=== PATIENT | female | born 1980 | race Caucasian/White ===

== ENCOUNTER 2021-02-09 22:24 | Inpatient (IN) | payer SELFPAY ==
[~2021-02-09] VITALS: Ht 152.4 cm; Wt 52.3 kg
[2021-02-09 22:58] LABS: HEMOGLOBIN 11.2 g/dl (12.5-16.0); MEAN CELL VOLUME 69 fl (80.0-100.0); MEAN CORPUSCULAR HEMOGLOBIN 20 pg (27.0-31.0); MEAN CORPUSCULAR HGB CONC 29 g/dl (33.0-37.0); MEAN PLATELET VOLUME 9.7 fl (7.4-10.4); PLATELET COUNT 868 K/mm3 (130-400); RED BLOOD COUNT 5.63 M/mm3 (4.10-5.30); REDCELL DISTRIBUTION WIDTH-CV 18.4 % (11.5-14.5)
[2021-02-09 23:14] LABS: ALANINE AMINOTRANSFERASE 12 U/L (4-34); ALBUMIN 4.9 gm/dL (3.5-5.0); ALKALINE PHOSPHATASE 115 U/L (50-136); ANION GAP 18 mmol/L (7-16); AST,SGOT 27 U/L (15-37); BILIRUBIN,TOTAL 0.4 mg/dL (0.0-1.0); BLOOD UREA NITROGEN 44 mg/dL (7-17); C-REACTIVE PROTEIN 2.9 mg/dL (0.0-0.9); CALCIUM 8.2 mg/dL (8.4-10.2); CHLORIDE 101 mmol/L (98-107); CREATININE, serum 3.41 (0.52-1.25); GLUCOSE 118 mg/dL (74-106); LIPASE 99 U/L (23-300); MAGNESIUM 2.2 mg/dL (1.6-2.3); SODIUM 131 mmol/L (137-145); TOTAL PROTEIN 9.1 gm/dL (6.4-8.2)
[2021-02-09 23:19] LABS: CARBON DIOXIDE 12 mmol/L (22-30)
[2021-02-09 23:21] LABS: POTASSIUM 1.8 mmol/L (3.4-5.0)
[2021-02-09 23:32] LABS: TROPONIN-I < 0.012 ng/mL (0.000-0.035)
[2021-02-09 23:39] LABS: ACETAMINOPHEN < 10 ug/mL (10-30); SALICYLATE < 1.0 mg/dL
[2021-02-10] VITALS (213 sets, daily range): BP systolic 90–101; BP diastolic 51–66; PULSE 66–83; TEMP 97.5–98.9; O2SAT 83–100
[2021-02-10 00:01] LABS: ANISOCYTOSIS 2+; BAND 8 % (0-10); LYMPHOCYTE 20 % (20.0-51.0); MICROCYTOSIS 1+; NEUTROPHILS 66 % (42.0-75.2); POIKILOCYTOSIS 2+
[2021-02-10 00:02] LABS: OVALOCYTES 1+; PLATELET ESTIMATE INCREASED (NORMAL)
[2021-02-10] MEDS ORDERED: PAXIL 10MG10 MG PO (03:04)
[2021-02-10] MEDS ORDERED: BUSPAR5 MG PO (03:04)
[2021-02-10 03:42] LABS: COLLECTION METHOD CLEAN CATCH
--- NOTE | 2021-02-10 03:50 | NUR ---
Patient arrived to ICU at 0223 with children at bedside. Patient alert and orientated. Assessment complete and charted. Natalie MENA in room at 0230 to assess patient. [facility] arrived at 0257 to take patient children to temp placement. Left with children at 0313. Verbal order for durham received. Durham placed. Patient has had 2 episodes of diarrhea since arrival with reports of ABD pain. Patient orienated to ICU. All questions answered. Labs repeated. Denies needs.
[2021-02-10 03:53] LABS: MUCOUS Present /lpf; PH 5 (5-8); SQUAMOUS EPITHELIAL 20-50 /hpf; URINE APPEARANCE Turbid; URINE BACTERIA Many /hpf; URINE BILIRUBIN Negative (NEGATIVE); URINE BLOOD Negative (NEGATIVE); URINE COLOR Yellow; URINE GLUCOSE Negative (NEGATIVE); URINE KETONE Negative (NEGATIVE); URINE LEUKOCYTE ESTERASE Negative (NEGATIVE); URINE NITRATE Negative (NEGATIVE); URINE PROTEIN(semi-quant) 2+ (NEGATIVE); URINE UROBILINOGEN Negative (NEGATIVE)
[2021-02-10 04:00] LABS: CALCIUM 6.6 mg/dL (8.4-10.2); CREATININE, serum 2.28 (0.52-1.25); MAGNESIUM 1.9 mg/dL (1.6-2.3)
[2021-02-10 04:05] LABS: POTASSIUM 2.3 mmol/L (3.4-5.0)
[2021-02-10 06:11] LABS: BASO # 0.1 (0.0-0.2); BASO % 0.7 % (0.0-2.0); EOS # 0.1 (0.0-0.7); EOS % 1.2 % (0-4.0); GRAN # 4.5 (1.4-6.5); GRAN % 65.5 % (42.2-75.2); LYMPH # 1.3 (1.2-3.4); MEAN CELL VOLUME 69 fl (80.0-100.0); MEAN CORPUSCULAR HGB CONC 29 g/dl (33.0-37.0); MEAN PLATELET VOLUME 9.3 fl (7.4-10.4); MONO # 0.9 (0.1-0.6); MONO % 12.4 % (1.7-9.3); RED BLOOD COUNT 4.15 M/mm3 (4.10-5.30); REDCELL DISTRIBUTION WIDTH-CV 17.5 % (11.5-14.5)
[2021-02-10 06:15] LABS: HEMATOCRIT 28.6 % (37.0-47.0); HEMOGLOBIN 8.3 g/dl (12.5-16.0); MEAN CORPUSCULAR HEMOGLOBIN 20 pg (27.0-31.0); PLATELET COUNT 589 K/mm3 (130-400)
[2021-02-10 06:26] LABS: CALCIUM 7.1 mg/dL (8.4-10.2); CREATININE, serum 1.58 (0.52-1.25)
[2021-02-10 06:31] LABS: POTASSIUM 2.9 mmol/L (3.4-5.0)
--- NOTE | 2021-02-10 06:34 | NUR ---
Patient asleep in bed this AM. Potassium replacement infusing. x2 episodes of diarrhea during night. Call light in reach.
--- NOTE | 2021-02-10 07:24 | NUR ---
Report given to SALVADOR Moody
--- NOTE | 2021-02-10 16:43 | NUR ---
Patient has done well since arriving from the ICU. She remains on fluids and K+ protocol. Patient is independent and A&Ox4. Patient has no complaints at this time.
--- NOTE | 2021-02-10 21:32 | NUR ---
PT RESTING COMFORTABLY IN BED. EVENING MEDICATIONS GIVEN. PT HAS NS RUNNING THROUGH JUGULAR LINE. WHEN PALPATING STOMACH PT WINCED, BUT DENIED ANY PAIN. PT HAS NO OTHER COMPLAINTS AT THIS TIME. CALL LIGHT WITHIN REACH. WILL CONTINUE TO MONTIOR.
[2021-02-11] VITALS (8 sets, daily range): BP systolic 91–111; BP diastolic 50–63; PULSE 59–92; TEMP 98.2–98.8
--- NOTE | 2021-02-11 00:13 | NUR ---
Pt requested to speak with physician. Discussed with pt what she needed. Pt stated that she needed to leave by 0800 for personal reasons. She stated that she wanted to leave against medical advice and asked for her prescriptions to be called in. Informed her that I would need to notify the mid level that is in house regarding this. Sean notified, order given to call the day shift mid level or physician in the morning. Informed pt that she does have an antibiotic due at 0300 and pt stated that she is willing to stay for it.
[2021-02-11 06:57] LABS: MEAN CELL VOLUME 71 fl (80.0-100.0); MEAN CORPUSCULAR HGB CONC 29 g/dl (33.0-37.0); MEAN PLATELET VOLUME 9.5 fl (7.4-10.4); PLATELET COUNT 513 K/mm3 (130-400); RED BLOOD COUNT 3.71 M/mm3 (4.10-5.30); REDCELL DISTRIBUTION WIDTH-CV 18.7 % (11.5-14.5); RETIC # 0.05 M/mm3 (0.02-0.16); RETIC % 1.2 % (0.5-3.52)
[2021-02-11 06:58] LABS: CALCIUM 7.8 mg/dL (8.4-10.2); CREATININE, serum 0.57 (0.52-1.25); HEMATOCRIT 26.2 % (37.0-47.0); HEMOGLOBIN 7.6 g/dl (12.5-16.0); MAGNESIUM 1.9 mg/dL (1.6-2.3); MEAN CORPUSCULAR HEMOGLOBIN 20 pg (27.0-31.0); POTASSIUM 4.3 mmol/L (3.4-5.0)
--- NOTE | 2021-02-11 07:00 | NUR ---
Report with SALVADOR Virk and SALVADOR Jaeger. Pt up to bathroom, denies needs at this time. Call light in reach.
[2021-02-11 07:02] LABS: IRON,SERUM < 10 ug/dL (35-150)
[2021-02-11 07:12] LABS: TOTAL IRON BINDING CAPACITY 256 ug/dL (265-497)
--- NOTE | 2021-02-11 07:30 | NUR ---
Assessment complete. Pt resting in bed, A&O x 4, denies pain at this time, reports continued diarrhea but slower than before. IVF's infusing per orders through right IJ triple lumen catheter without s/s of complications. Physical assessment otherwise unremarkable. No further needs reported. Call light in reach.
[2021-02-11 07:34] LABS: ANISOCYTOSIS 3+; BASOPHIL 1 % (0-2); EOSINOPHIL 5 % (0-4); HYPOCHROMIA 4+; LYMPHOCYTE 32 % (20.0-51.0); MICROCYTOSIS 1+; NEUTROPHILS 59 % (42.0-75.2); PLATELET ESTIMATE INCREASED (NORMAL)
[2021-02-11 07:35] LABS: OVALOCYTES 1+
--- NOTE | 2021-02-11 10:45 | NUR ---
RICHARD met with the patient to discuss discharge plan. The patient lives in [place] with her two children: Douglas (9-years-old) and Jocelynn (8-years-old). She states that she came to the ER this weekend and did not have anyone to watch her children, so they went into police custody. She reports that the police have been in contact with her and she knows what family her children are staying with and she has their contact number to be able to talk to them. The patient reports that she recently went to the [place] to visit her fianceSalvador (ph#[phone]). She then traveled back up to [place] to get her children, who were staying with her cousin. She reports independence with ADLs and does not have any DME. The patient does not have a PCP. She confirms that she is self pay. SW discussed primary care at the [facility] in [place] and and how the office can get her in sooner. The patient was is interested in getting set up at [facility] in [place]. The patient receives her medications from [facility]. The patient does not have a DPOA-HC, but she was interested in obtaining a form. RICHARD provided. She states that she is not , she has two children under the age of 18, she states that her father is and that her mother is alive; but do not have a relationship. RICHARD encouraged the patient to complete a DPOA-HC. The patient plans to return home upon discharge. SW to contact and secure an appointment at [facility] in . RICHARD then contacted Mary Lou Vega [employer]. Mary Lou confirms that the patient's children are currently in Police Protective Custody. She reports that the patient was assigned to the CPS worker, Alphonse (ph#[phone]). Will will be getting in contact with the patient to discuss her case. *Discharge plan: home*
--- NOTE | 2021-02-11 12:31 | NUR ---
Initial visit; Patient thanked Director Orange for offering prayer and God's blessings and keeping her in Director Orange's prayers. Director Orange will follow up.
--- NOTE | 2021-02-11 13:23 | NUR ---
Pt to CT for testing via WC.
[2021-02-11 16:00] LABS: HEMATOCRIT 26.1 % (37.0-47.0); HEMOGLOBIN 7.5 g/dl (12.5-16.0)
--- NOTE | 2021-02-11 16:28 | NUR ---
CPS worker, Alphonse, came and met with the patient. The patient has been concerned about her children being in the 72 hour care with police. Will reports that the 72 hours starts when they receive the report and that they received it this morning. The 72 hour care goes until Thursday and then the case would go to the court. RICHARD and Alphonse informed the patient of this. Alphonse requests that we keep him updated on d/c date. At this time, the hospitalist believes that the patient may be able to d/c tomorrow. RICHARD informed Alphonse of this.
--- NOTE | 2021-02-11 19:00 | NUR ---
Report to SALVADOR Skinner. Pt resting in bed, finished with dinner, denies needs at this time. Call light in reach.
--- NOTE | 2021-02-11 23:41 | NUR ---
ALERT AND OX4. CONTINUES TO HAVE SOME DIARHEA BUT NOT MANY EPSISODES TODAY PER PT. DENIES SOA, LIGHTHEADED OR DIZZY. ASSESSMENT DONE. POC DISCUSSED. CALL LIGHT WI REACH.
[2021-02-12 00:28] LABS: HEMATOCRIT 25.3 % (37.0-47.0); HEMOGLOBIN 7.1 g/dl (12.5-16.0)
--- NOTE | 2021-02-12 01:04 | NUR ---
REPORT HEMOGLOBIN 7.1 TO JOSH BANEGAS. PT SLEEPING.
[2021-02-12 03:58] VITALS: BP 103/60; PULSE 62; TEMP 98.6
--- NOTE | 2021-02-12 04:09 | NUR ---
lab called to inform that pt has a antibody in blood that can not be identified will have to send sample to [facility] and could possibly take as long as late this evening or longer to get. Rajni MORENO notified.
--- NOTE | 2021-02-12 05:07 | NUR ---
RESTED THOUGH THE NIGHT WIHTOUT INCIDENT. NEEDS MET.
[2021-02-12 05:52] LABS: MEAN CELL VOLUME 72 fl (80.0-100.0); MEAN CORPUSCULAR HGB CONC 29 g/dl (33.0-37.0); PLATELET COUNT 415 K/mm3 (130-400); REDCELL DISTRIBUTION WIDTH-CV 18.6 % (11.5-14.5)
[2021-02-12 05:58] LABS: HEMATOCRIT 25.1 % (37.0-47.0); HEMOGLOBIN 7.2 g/dl (12.5-16.0); MEAN CORPUSCULAR HEMOGLOBIN 21 pg (27.0-31.0)
[2021-02-12 06:09] LABS: CALCIUM 7.4 mg/dL (8.4-10.2); CREATININE, serum 0.46 (0.52-1.25); POTASSIUM 3.3 mmol/L (3.4-5.0)
[2021-02-12 07:31] VITALS: BP 102/59; PULSE 86; TEMP 98.6
[2021-02-12 07:36] LABS: ANISOCYTOSIS 3+; BASOPHIL 3 % (0-2); EOSINOPHIL 3 % (0-4); HYPOCHROMIA 4+; LYMPHOCYTE 23 % (20.0-51.0); MICROCYTOSIS 1+; NEUTROPHILS 63 % (42.0-75.2); OVALOCYTES 1+; PLATELET ESTIMATE INCREASED (NORMAL); POIKILOCYTOSIS 1+
--- NOTE | 2021-02-12 08:12 | NUR ---
Assessment completed, alert/oriented, vital signs stable, dang carcamo at this time, reports her breathing is improved but still labored with exertion, she is still requiring Airvo, lungs are CTA/ diminished, respirations are unlabored at rest, heart RRR/ distal pulses are palpable, vascular just arrived to perform ECHO and BLE venous doppler, patien is obese/ LE are large but do not appear to be edematous/ No redness or tenderness noted, will continue to monitor
--- NOTE | 2021-02-12 09:16 | NUR ---
Assessment completed, alert/oriented, vital signs stable, denies pain or discomfort this morning, reports stools are still loose but less frequent, abd soft and BS+, potassium low and replacing per protocol, heart RRR/ SR on tele, distal pulses are palpable, denies any cramping or LE discofort, lungs CTA/ no resp.difficulty, she reports generalized fatigue and lack of energy, hemaglobin 7.2/ 1 unit PRBC ordered and will transfuse when available, patient is sitting up eating breakfast, denies other needs at this time
--- NOTE | 2021-02-12 09:51 | NUR ---
RICHARD contacted [facility] in and secured the patient an appointment on Thursday, 02/19, at [address] Lau. RICHARD notified the post anesthesia care unit nurse of the appointment. RICHARD will need to fax the patient's records and d/c orders to [facility] in : [phone].
[2021-02-12 11:36] VITALS: BP 105/65; PULSE 86; TEMP 98.6
--- NOTE | 2021-02-12 14:56 | NUR ---
RICHARD staffed with the PA. The patient is not ready to d/c. Possibly tomorrow. RICHARD attempted to contact CPS worker, Ethan, to update. RICHARD left him a voicemail.
[2021-02-12 15:52] VITALS: BP 115/61; PULSE 78; TEMP 98.5
[2021-02-12 19:32] VITALS: BP 110/69; PULSE 79
--- NOTE | 2021-02-12 19:47 | NUR ---
PT RESTING COMFORTABLY IN BED. R INTRAJUGULAR LINE FLUSHES AND HAS BLOOD RETURN. PT HAS NO COMPLAINTS AT THIS TIME. CALL LIGHT WITHIN REACH. WILL CONTINUE TO MONITOR.
[2021-02-13 00:12] VITALS: BP 117/61; PULSE 79; TEMP 98.6
[2021-02-13 03:28] VITALS: BP 101/52; PULSE 58; TEMP 98.4
[2021-02-13 07:03] LABS: MEAN CELL VOLUME 72 fl (80.0-100.0); MEAN CORPUSCULAR HGB CONC 28 g/dl (33.0-37.0); MEAN PLATELET VOLUME 9.5 fl (7.4-10.4); PLATELET COUNT 463 K/mm3 (130-400); RED BLOOD COUNT 3.72 M/mm3 (4.10-5.30); REDCELL DISTRIBUTION WIDTH-CV 18.6 % (11.5-14.5)
[2021-02-13 07:06] LABS: HEMATOCRIT 26.9 % (37.0-47.0); HEMOGLOBIN 7.4 g/dl (12.5-16.0); MEAN CORPUSCULAR HEMOGLOBIN 20 pg (27.0-31.0)
[2021-02-13 07:19] LABS: CALCIUM 7.7 mg/dL (8.4-10.2); CREATININE, serum 0.43 (0.52-1.25); MAGNESIUM 1.8 mg/dL (1.6-2.3); POTASSIUM 4.1 mmol/L (3.4-5.0)
[2021-02-13 07:51] LABS: BASOPHIL 1 % (0-2); EOSINOPHIL 4 % (0-4); LYMPHOCYTE 26 % (20.0-51.0); METAMYELOCYTE 5 % (0-0); NEUTROPHILS 59 % (42.0-75.2); PLATELET ESTIMATE INCREASED (NORMAL)
[2021-02-13 07:52] LABS: ANISOCYTOSIS 1+; MICROCYTOSIS 1+
[2021-02-13 07:55] LABS: TEAR DROP CELLS 1+
[2021-02-13 07:56] LABS: OVALOCYTES 1+
[2021-02-13 08:02] VITALS: BP 110/58; PULSE 64; TEMP 98.2
[2021-02-13] MEDS ORDERED: CIPRO 500MG TA500 MG PO (09:19)
[2021-02-13] MEDS ORDERED: K-DUR20 MEQ PO ×2 (09:24→10:27)
--- NOTE | 2021-02-13 09:24 | NUR ---
Ethan, CPS worker, contacted RICHARD. He reports that the patient's court date is today at 1430. RICHARD notified the clinical team. RICHARD then attended clinical rounds. The patient is to tentatively d/c today, pending EKG results. RICHARD notified RT. RICHARD followed up with the patient to review d/c plan. The patient plans to return home. She reports that she will need transport back home. Her car is back home and she does not have anyone that can pick her up. RICHARD informed her that we will provide her with a taxi voucher. RICHARD to provide the taxi voucher to the patient's RN. The patient reports that she will be able to afford her prescriptions. The patient confirms that she is aware that her court date is at 1430 and that she has been in contact with Ethan. The patient had no other questions or concerns for RICHARD. RICHARD faxed the patient's records to [facility] in [place].
[2021-02-13] MEDS ORDERED: FERRO-TIME325 MG PO (09:25)
--- NOTE | 2021-02-13 11:26 | NUR ---
The patient is to discharge back home today, 02/13. RICHARD notified Ethan CPS worker. RICHARD provided the taxi voucher to the patient's RN. No additional needs at this time.
--- NOTE | 2021-02-13 11:42 | NUR ---
0700 PT RECEIVED RESTING IN BED. NO S/S OF DISTRESS NOTICED. PT AAOX3. PT DENIES HAVING PAIN. CALL-LIGHT IN REACH. BED IN LOW POSITION. COMFORT MEASURES IN PLACE. WILL CONTINUE TO MONITOR. 0800 PT EATING HER MEAL. NO COMPLAINTS AT THIS TIME. 0900 MEDICATIONS ADMINISTERED ORDERED. 1130 IV ACCESS REMOVED. DISCHARGE INSTRUCTIONS REVIEWED WITH PT AND SHE VERBALIZES THAT SHE UNDERSTANDS. TAXI VOUCHER GIVEN TO PT. [facility] CALLED AND SHOULD BE PICKING PT UP SOON.
== END 2021-02-13 12:35 | disposition home or self-care (01) | DRG 372 ==
LOC: COL.ER 22:24 → ICU 02-10 00:12 → MEDICAL 02-10 15:05
PROVIDERS: Emergency Medicine; Nurse Practitioner Family; Physician Assistant; Student in an Organized Health Care Education/Training Program; ADMIT Internal Medicine
DX: A02.0 Salmonella enteritis (principal); E87.1 Hypo-osmolality and hyponatremia; E87.2 Acidosis; N17.9 Acute kidney failure, unspecified; B96.20 Unspecified Escherichia coli [E. coli] as the cause of diseases classified elsewhere; F41.9 Anxiety disorder, unspecified; F32.9 Major depressive disorder, single episode, unspecified; D47.3 Essential (hemorrhagic) thrombocythemia; E87.6 Hypokalemia; I95.9 Hypotension, unspecified; E86.1 Hypovolemia; D50.9 Iron deficiency anemia, unspecified; A04.4 Other intestinal Escherichia coli infections; F43.10 Post-traumatic stress disorder, unspecified; Z90.49 Acquired absence of other specified parts of digestive tract; Z20.822 Contact with and (suspected) exposure to COVID-19
CPT/HCPCS: 99223-AI; 99232-AI; 99233-AI; 99239; A4314; J0696; J1756; J2405; J3010; J3480; J7030